=== PATIENT | female | born 1955 | race Caucasian/White ===

== ENCOUNTER 2023-07-29 23:18 | Inpatient (IN) ==
--- NOTE | 2023-07-29 23:50 | Emergency Department Note ---
History of Present Illness General Chief complaint: Hematuria Stated complaint: LT FLANK/ABD PAIN, OVER WEEKEND HEMATURIA Time Seen by Provider: 07/29/23 23:34 History of Present Illness Maximum Pain Intensity: 5 This 68-year-old female presents ER complaining of left-sided abdominal pain and chest pain for the past day. She states she is healthy with no active medical problems. Appendix has been surgically removed. Patient denies fever, chills, cough, congestion, vomiting, diarrhea, flank pain, urinary symptoms. No rash. No trauma to the area. Home Medications Medication Instructions Recorded Confirmed Type diphenhydramine HCl 25 mg capsule 25 mg PO DIRECTED PRN Congestion 07/30/23 07/30/23 History (Benadryl) ibuprofen 200 mg tablet 400 mg PO Q6H PRN Pain 07/30/23 07/30/23 History meloxicam 7.5 mg tablet 7.5 mg PO DAILY PRN Pain 07/30/23 07/30/23 History multivitamin 1 tab PO DAILY 07/30/23 07/30/23 History Allergies Allergy/AdvReac Type Severity Reaction Status Date / Time ciprofloxacin [From Cipro] Allergy Intermediate COUGH/ITCHI Verified 07/30/23 00:54 NG sulfamethoxazole Allergy Intermediate COUGH/ITCHI Verified 07/30/23 00:54 [From Bactrim] NG trimethoprim [From Bactrim] Allergy Intermediate COUGH/ITCHI Verified 07/30/23 00:54 NG Past Med/Surg History Problem List (Updated 07/30/23 @ 01:56 by Diana Kwon PA-C) Ureterolithiasis (Acute) Renal colic on left side (Acute) Social History Smoking Status: Never smoker Feels Safe at Home: Yes Review of Systems A total of 10 systems reviewed and were otherwise negative Physical Exam Vital Signs Vital Signs - 24 hr 07/29/23 23:22 07/30/23 00:14 07/30/23 00:17 Temperature 36.4 C L Temperature Source Temporal Artery Scan Pulse Rate 69 68 Pulse Rate [Apical] 61 Respiratory Rate 18 18 Respiratory Effort / Characteristics Non-Labored Respiratory Depth Normal Respiratory Pattern Regular Blood Pressure 166/87 H Blood Pressure [Right Arm] 129/69 Blood Pressure Mean 113 Blood Pressure Mean [Right Arm] 89 Pulse Oximetry 99 97 Oxygen Delivery Method Room Air Room Air Sepsis Recent Fever Within 48 Hours No Sepsis New/Unexplained Change in Mental Status N/A Sepsis Action Taken by Nursing No Action Required 07/30/23 00:17 Temperature Temperature Source Pulse Rate Pulse Rate [Apical] Respiratory Rate Respiratory Effort / Characteristics Respiratory Depth Respiratory Pattern Blood Pressure Blood Pressure [Right Arm] Blood Pressure Mean Blood Pressure Mean [Right Arm] Pulse Oximetry 97 Oxygen Delivery Method Room Air Sepsis Recent Fever Within 48 Hours Sepsis New/Unexplained Change in Mental Status Sepsis Action Taken by Nursing VITALS: Vitals are noted on the nurse's note and reviewed by myself. Vital signs stable. GENERAL: Pleasant female, in no acute distress, nondiaphoretic, well-developed well-nourished. SKIN: Capillary reflex less than 2 seconds. HEENT: Normocephalic. PERRLA. EOMI. Nares patent. Mucous membranes moist. Neck is supple without nuchal rigidity. HEART: Regular rate and rhythm LUNGS: Clear to auscultation bilaterally without wheezes, rales or rhonchi. No retractions or accessory muscle use. ABDOMEN: Positive bowel sounds x 4. Normal tympanic percussion. Soft, tender left upper and lower quadrant, without masses or organomegaly. Herrera sign negative. No guarding or rebound tenderness. no CVA tenderness MUSCULOSKELETAL: No gross musculoskeletal defects. NEURO: Patient was alert and oriented to person place and time. No focal neurological deficits. Course Administered Medications Discontinued Medications Sodium Chloride (Nss) 500 mls @ 999 mls/hr IV .Q31M STA Stop: 07/30/23 00:10 Last Infusion: 07/30/23 00:34 Dose: Infused Documented By: Admin: 07/30/23 00:02 Dose: 999 mls/hr Documented By: TAVO Acetaminophen (Ofirmev) 1,000 mg in 100 mls @ 400 mls/hr IV NOW STA Stop: 07/29/23 23:54 Last Infusion: 07/30/23 00:34 Dose: Infused Documented By: Admin: 07/30/23 00:02 Dose: 400 mls/hr Documented By: TAVO Ondansetron HCl (Ondansetron Inj 2 Mg/Ml 2 Ml Vial) 4 mg IV NOW STA Stop: 07/29/23 23:41 Last Admin: 07/30/23 00:02 Dose: 4 mg Documented By: TAVO Medical Decision Making Medical Records Attestation: I reviewed the patient's medical records. Home Medications Current Medication List: was personally reviewed by me Laboratory Data Attestation: I reviewed the patient's lab results. 07/30/23 00:01 07/30/23 00:01 Lab Results 07/29/23 07/30/23 Range/Units 23:44 00:01 WBC 8.36 (4.8-10.8) K/ul RBC 4.44 (4.20-5.40) M/uL Hgb 12.5 (12.0-16.0) g/dl Hct 38.5 (37.0-47.0) % MCV 86.7 (80.0-100.0) fL MCH 28.2 (25.0-34.0) pg MCHC 32.5 (32.0-36.0) g/dL RDW Std Deviation 43.3 (36.4-46.3) fL RDW Coeff of Rafy 13.8 (11.5-14.5) % Plt Count 282 (130-400) K/uL MPV 9.5 (9.4-12.4) fL Immature Gran % (Auto) 0.2 % Neut % (Auto) 71.6 % Lymph % (Auto) 18.5 % [place] % (Auto) 7.2 % Eos % (Auto) 2.0 % Baso % (Auto) 0.5 % Neut # (Auto) 5.98 (1.40-6.50) K/uL Lymph # (Auto) 1.55 (1.20-3.40) K/uL [place] # (Auto) 0.60 H (0.11-0.59) K/uL Eos # (Auto) 0.17 (0.00-0.50) K/uL Baso # (Auto) 0.04 (0.00-0.20) K/uL Immature Gran # (Auto) 0.02 (0.01-0.20) K/uL Sodium 140 (136-145) mmol/L Potassium 4.1 (3.5-5.1) mmol/L Chloride 104 (98-107) mmol/L Carbon Dioxide 28 (21-32) mmol/L Anion Gap 8 (3-11) BUN 23 (6-23) mg/dl Creatinine 1.76 H (0.6-1.2) mg/dl Est Cr Clr Drug Dosing 32.5 ml/min Est GFR ( Amer) 34.1 ml/min Est GFR (Non-Af Amer) 29.4 ml/min BUN/Creatinine Ratio 13.1 (10-20) Glucose 110 H (70-99(Fasting)) mg/dl Calcium 9.9 (8.6-10.3) mg/dl Total Bilirubin 0.4 (0.2-1.0) mg/dl AST 16 (13-39) U/L ALT 14 (7-52) U/L Alkaline Phosphatase 106 H (34-104) U/L Troponin I High Sens 4.1 (0-14) pg/ml Total Protein 7.5 (6.0-8.3) gm/dl Albumin 4.6 (3.4-5.0) gm/dl Globulin 2.9 (2.5-4.0) gm/dl Albumin/Globulin Ratio 1.6 (0.9-2) Lipase 58 (11-82) U/L Urine Color Yellow Urine Appearance Cloudy A (Clear) Urine pH 6.0 (4.5-7.5) Ur Specific [place] 1.022 (1.000-1.030) Urine Protein Trace H (Negative) Urine Glucose (UA) Negative (Negative) Urine Ketones Trace H (Negative) Urine Blood 2+ H (Negative) Urine Nitrite Negative (Negative) Urine Bilirubin Negative (Negative) Urine Urobilinogen Negative (Negative) Ur Leukocyte Esterase Negative (Negative) Urine WBC (Auto) 0-5 (0-5) /hpf Urine RBC (Auto) >20 H (0-2) /hpf U Hyaline Cast (Auto) 0-2 (0-2) /lpf U Epithel Cells (Auto) 0-2 (0-2) /hpf Urine Bacteria (Auto) None Seen (None Seen) Calcium Oxalate Crystal Present A (None Prsent) Imaging Data Attestation: I personally reviewed and interpreted this imaging study as follows: Radiologist's Impression: Abdomen/Pelvis CT 07/30/23 00:48 Exam(s): CT ABDOMEN + PELVIS Without Contrast EXAM: CT Abdomen and Pelvis Without Intravenous Contrast CLINICAL HISTORY: Reason for exam: left abd pain. TECHNIQUE: Axial computed tomography images of the abdomen and pelvis without intravenous contrast. CTDI is 22.67 mGy and DLP is 1044.93 mGy-cm. Automated exposure control was utilized for the study. A dose lowering technique was utilized adhering to the principles of ALARA. COMPARISON: None. FINDINGS: Lung bases: Minimal right lower lobe atelectasis, otherwise normal lung parenchyma. Mediastinum: Minimal hiatal hernia. ABDOMEN: Liver: Unremarkable. Gallbladder and bile ducts: Unremarkable. No calcified stones. No ductal dilation. Pancreas: Unremarkable. No ductal dilation. Spleen: Unremarkable. No splenomegaly. Adrenals: Unremarkable. No mass. Kidneys and ureters: Mild left perinephric stranding with moderate hydronephrosis and hydroureter. Stranding surrounding the left ureter. The left ureter is distended to the distal aspect where there is a large stone measuring 7.8 mm. This is seen a few centimeter above the UV junction. Normal right kidney. Stomach and bowel: Unremarkable. No obstruction. No mucosal thickening. PELVIS: Appendix: No findings to suggest acute appendicitis. Bladder: Unremarkable. No stones. Reproductive: Anteverted uterus. ABDOMEN and PELVIS: Intraperitoneal space: Unremarkable. No free air. No significant fluid collection. Bones/joints: Possible mild osteopenia with degenerative disease of the spine. No acute fracture. No dislocation. Soft tissues: Unremarkable. Vasculature: Mild atherosclerotic disease of aorta with no aneurysm. Lymph nodes: Unremarkable. No enlarged lymph nodes. IMPRESSION: 1. Moderate left hydronephrosis due to a distal left ureteral stone measuring 7.8 mm, noted a few centimeter above the UV junction. Remainder of abdominal viscera are unremarkable. 2. No bowel obstruction or acute appendicitis. Electronically signed by: Aditi Talley MD 07/30/23 01:46 AM [facility] Narrative Prior records/ancillary studies reviewed. Triage Nursing notes reviewed. Additional history obtained from family left-sided chest and The patient's history was concerning for left-sided chest and abdominal pain. Differential diagnosis: Etiologies such as cardiac, pulmonary, appendicitis, diverticulitis, PUD, biliary pathology, UTI, pancreatitis, obstruction, mesenteric ischemia, aortic pathology, infections, inflammatory bowel disease, renal colic, as well as others were entertained. Physical examination findings: As above. ER treatment provided: An order was placed for continuous cardiac monitoring. The monitor shows a rate of 60-100 with a sinus rhythm per my Independent interpretation. Tylenol was ordered, morphine, Zofran, Flomax was ordered On reassessment the patient felt better. Diagnostics interpreted by me: ECG: Ordered for upper abdominal pain EKG: Normal sinus, normal intervals, no acute ST-T wave changes. Impression normal sinus rhythm independently interpreted by myself The labs Independently Interpreted by myself revealed creatinine 1.76 No worrisome leukocytosis Imaging studies: Imaging as above HEART SCORE: Hx: high/mod/low suspicion: 0 ECG: ST depression/nonspecific changes/normal: 0 Age: Greater than 65/45-64/less than 45: 2 Risk factors: (Hypertension, hyperlipidemia, diabetes, coronary disease, tobacco use, cocaine use): 0 Troponin: Greater than 2 times normal limits/1-2 times normal limits/normal: 0 Total: 2 Consultation: A consultation was placed with the hospitalist. The case was discussed and diagnostics were reviewed. The patient was evaluated in the ER for further treatment. Exam and history seem consistent with left renal colic. Kidney stone is quite large. Patient was still in a moderate amount of pain. Medicine is consulted case discussed patient admitted to the medical service for further evaluation and workup. By the evaluation outlined above emergent etiologies such as appendicitis, diverticulitis, PUD, biliary pathology, UTI, pancreatitis, obstruction, mesenteric ischemia, aortic pathology, infections, inflammatory bowel disease, as well as others were deemed relatively unlikely. The pt informed about the findings as listed above. All questions were answered and pleased with the treatment. The chart was completed utilizing [employer] Speech voice recognition software. Grammatical errors, random word insertions, pronoun errors, and incomplete sentences are an occassional consequence of this system due to software limitations, ambient noise, and hardware issues. Any formal questions or concerns about the content, text, or information contained within the body of this dictation should be directly addressed to the physician assistant football coach for clarification. Impression & Plan Renal colic on left side, Ureterolithiasis Discharge Plan Visit Data Chief Complaint: Hematuria Stated Complaint: LT FLANK/ABD PAIN, OVER WEEKEND HEMATURIA ED Provider: Nicolette Cervantes ED Midlevel Provider: Diana Kwon Discharge Problem: Renal colic on left side, Ureterolithiasis Patient Disposition: Admitted As Inpatient Condition: Good Forms Stand Alone Forms: [facility] Prescriptions Prescriptions: No Action multivitamin Tablet 1 tab PO DAILY meloxicam 7.5 mg tablet 7.5 mg PO DAILY PRN (Reason: Pain) diphenhydramine HCl [Benadryl] 25 mg Capsule 25 mg PO DIRECTED PRN (Reason: Congestion) ibuprofen 200 mg Tablet 400 mg PO Q6H PRN (Reason: Pain) Referrals Referrals: Sara Reardon PA-C [Primary Care Provider] -
[2023-07-30] MEDS: ACETAMINOPHEN 1,000 MG/100 ML VIAL IV STA (00:02)
[2023-07-30] MEDS: ONDANSETRON INJ 2 MG/ML 2 ML VIAL IV STA ×2 (00:02→02:07)
[2023-07-30] MEDS: SODIUM CHLORIDE 0.9% 500 ML IV STA (00:02)
[2023-07-30 00:31] LABS: Basophils # (auto) 0.04 K/uL (0.00-0.20); Basophils % (auto) 0.5 %; Eosinophils # (auto) 0.17 K/uL (0.00-0.50); Hematocrit (blood only) 38.5 % (37.0-47.0); Hemoglobin 12.5 g/dl (12.0-16.0); Immature Granulocytes # (auto) 0.02 K/uL (0.01-0.20); Immature Granulocytes % (auto) 0.2 %; Lymphocytes # (auto) 1.55 K/uL (1.20-3.40); Lymphocytes % (auto) 18.5 %; Mean Corpuscular Hemoglobin 28.2 pg (25.0-34.0); Mean Corpuscular Hgb Conc 32.5 g/dL (32.0-36.0); Mean Corpuscular Volume 86.7 fL (80.0-100.0); Mean Platelet Volume 9.5 fL (9.4-12.4); Monocytes % (auto) 7.2 %; Neutrophils # (auto) 5.98 K/uL (1.40-6.50); Neutrophils % (auto) 71.6 %; Platelet Count 282 K/uL (130-400); RDW Coefficient of Variation 13.8 % (11.5-14.5); RDW Standard Deviation 43.3 fL (36.4-46.3); Red Blood Count 4.44 M/uL (4.20-5.40); White Blood Count 8.36 K/ul (4.8-10.8)
[2023-07-30 00:38] LABS: Appearance Urine Cloudy (Clear); Bacteria Urine Automated None Seen (None Seen); Bilirubin Urine Negative (Negative); Blood Urine 2+ (Negative); Calcium Oxalate Crystals Urine Present (None Prsent); Cast Urine Automated 0-2 /lpf (0-2); Color Urine Yellow; Epithelial Cell Urine Auto 0-2 /hpf (0-2); Glucose Urine UA Negative (Negative); Ketones Urine Trace (Negative); Leukocyte Esterase Urine Negative (Negative); Nitrite Urine Negative (Negative); Protein Urine Trace (Negative); RBC Urine Automated >20 /hpf (0-2); Specific Gravity Urine 1.022 (1.000-1.030); Urobilinogen Urine Negative (Negative); WBC Urine Automated 0-5 /hpf (0-5)
[2023-07-30 00:40] LABS: Albumin Globulin Ratio 1.6 (0.9-2); Albumin Level 4.6 gm/dl (3.4-5.0); BUN Creatinine Ratio 13.1 (10-20); Bilirubin,Total 0.4 mg/dl (0.2-1.0); Calcium 9.9 mg/dl (8.6-10.3); Creatinine Clr Calc Pharmacy 32.5 ml/min; Est GFR (African American) 34.1 ml/min; Est GFR (Non-African American) 29.4 ml/min; Globulin 2.9 gm/dl (2.5-4.0); Potassium 4.1 mmol/L (3.5-5.1); Total Protein 7.5 gm/dl (6.0-8.3)
[2023-07-30 00:46] LABS: Troponin I High Sensitivity 4.1 pg/ml (0-14)
--- NOTE | 2023-07-30 01:48 | CT Scan Report ---
Exam(s): CT ABDOMEN + PELVIS Without Contrast EXAM: CT Abdomen and Pelvis Without Intravenous Contrast CLINICAL HISTORY: Reason for exam: left abd pain. TECHNIQUE: Axial computed tomography images of the abdomen and pelvis without intravenous contrast. CTDI is 22.67 mGy and DLP is 1044.93 mGy-cm. Automated exposure control was utilized for the study. A dose lowering technique was utilized adhering to the principles of ALARA. COMPARISON: None. FINDINGS: Lung bases: Minimal right lower lobe atelectasis, otherwise normal lung parenchyma. Mediastinum: Minimal hiatal hernia. ABDOMEN: Liver: Unremarkable. Gallbladder and bile ducts: Unremarkable. No calcified stones. No ductal dilation. Pancreas: Unremarkable. No ductal dilation. Spleen: Unremarkable. No splenomegaly. Adrenals: Unremarkable. No mass. Kidneys and ureters: Mild left perinephric stranding with moderate hydronephrosis and hydroureter. Stranding surrounding the left ureter. The left ureter is distended to the distal aspect where there is a large stone measuring 7.8 mm. This is seen a few centimeter above the UV junction. Normal right kidney. Stomach and bowel: Unremarkable. No obstruction. No mucosal thickening. PELVIS: Appendix: No findings to suggest acute appendicitis. Bladder: Unremarkable. No stones. Reproductive: Anteverted uterus. ABDOMEN and PELVIS: Intraperitoneal space: Unremarkable. No free air. No significant fluid collection. Bones/joints: Possible mild osteopenia with degenerative disease of the spine. No acute fracture. No dislocation. Soft tissues: Unremarkable. Vasculature: Mild atherosclerotic disease of aorta with no aneurysm. Lymph nodes: Unremarkable. No enlarged lymph nodes. IMPRESSION: 1. Moderate left hydronephrosis due to a distal left ureteral stone measuring 7.8 mm, noted a few centimeter above the UV junction. Remainder of abdominal viscera are unremarkable. 2. No bowel obstruction or acute appendicitis. Electronically signed by: Aditi Talley MD 07/30/23 01:46 AM
[2023-07-30] MEDS: MoRPHine SULFATE 4 MG/ML 1 ML CARP\\VIAL IV STA (02:07)
[2023-07-30] MEDS: TAMSULOSIN HCL 0.4 MG CAP PO ONE (02:07)
--- NOTE | 2023-07-30 04:00 | History & Physical Report ---
Date of Service July 30, 2023 Assessment & Plan (1) Renal colic on left side: Plan: 68-year-old female with past medical history significant for migraines presents with left sided abdominal pain starting yesterday evening. Pain is located on left side below the rib cage radiating to left groin region. Associated with some nausea. Last Thursday she had few episodes of hematuria but it got resolved. Denies any fevers. Normal bowel movements. No blood in stools or black stools. No chest pain or shortness of breath. No cough. No headache. No dizziness. No blurred visions. No headache. No runny nose or sore throat. Appetite is okay. No swelling in the legs. Currently resting comfortably and hemodynamically stable. With the pain medication pain is improved. Renal colic on left side Had episode of hematuria last Thursday. CT scan showing moderate left hydronephrosis due to distal left ureteral stone measuring 7.8 mm above the UV junction. Pain control, IV fluids, n.p.o., p.o. Flomax urology consult for further recommendations MAGALY creatinine 1.7 avoid nephrotoxic agents follow repeat labs DVT prophylaxis SCDs for now disposition medical floor full code. . History of Present Illness Chief Complaint: left-sided abdominal pain Primary Care Provider: Sara Reardon PA-C 68-year-old female with past medical history significant for migraines presents with left sided abdominal pain starting yesterday evening. Pain is located on left side below the rib cage radiating to left groin region. Associated with some nausea. Last Thursday she had few episodes of hematuria but it got resolved. Denies any fevers. Normal bowel movements. No blood in stools or black stools. No chest pain or shortness of breath. No cough. No headache. No dizziness. No blurred visions. No headache. No runny nose or sore throat. Appetite is okay. No swelling in the legs. Currently resting comfortably and hemodynamically stable. With the pain medication pain is improved. Past medical history. As mentioned above past surgical history. Joint arthroscopy. Right breast lesion excision. Colonoscopy. Laparoscopic appendectomy. Ligation of oviducts. Removal of ovaries. Tonsillectomy and adenoidectomy. Social history. . No smoking. Alcohol occasionally. No drug use. Family history. Maternal aunt had breast cancer. Mother had heart disorder. A-fib. Mitral valve replacement. COPD. Father had hypertension. COPD. Allergies Allergy/AdvReac Type Severity Reaction Status Date / Time ciprofloxacin [From Cipro] Allergy Intermediate COUGH/ITCHI Verified 07/30/23 00:54 NG sulfamethoxazole Allergy Intermediate COUGH/ITCHI Verified 07/30/23 00:54 [From Bactrim] NG trimethoprim [From Bactrim] Allergy Intermediate COUGH/ITCHI Verified 07/30/23 00:54 NG Home Medications Medication Instructions Recorded Confirmed Type diphenhydramine HCl 25 mg capsule 25 mg PO DIRECTED PRN Congestion 07/30/23 07/30/23 History (Benadryl) ibuprofen 200 mg tablet 400 mg PO Q6H PRN Pain 07/30/23 07/30/23 History meloxicam 7.5 mg tablet 7.5 mg PO DAILY PRN Pain 07/30/23 07/30/23 History multivitamin 1 tab PO DAILY 07/30/23 07/30/23 History Past Med/Surg History Problem List (Updated 07/30/23 @ 01:56 by Diana Kwon PA-C) Ureterolithiasis (Acute) Renal colic on left side (Acute) Social History Smoking Status: Never smoker Hx Alcohol Use: Yes Hx Substance Use: No Preferred Language: Barbadian Communication Ability: Effective [employer] Required: No Beliefs That Will Affect Care: None Current Living Situation: Spouse Feels Safe at Home: Yes Safety Concerns: Feels Safe At This Time Assistive Devices: None Review of Systems Review of Systems: All systems reviewed & are unremarkable except as noted in HPI & below Physical Exam Physical Exam: General- Not in distress Head- atraumatic Eyes- PERRL. ENT- oropharynx clear Neck- supple, no JVD. Lungs- clear to auscultation no wheezing or crackles. Heart- regular rhythm; no murmur, no gallop. Abdomen- normal bowel sounds, soft, nontender, no distension. No cva tenderness. Extremities- no pretibial edema, no erythema seen. Neuro- alert, oriented PERRL, no facial palsy; no dysarthria; moves extremities. Results & Data Results & Data Vital Signs (Past 12 Hours) Vital Signs Temp Pulse Pulse Resp BP BP Pulse Ox 07/30/23 02:00 62 18 139/82 96 07/30/23 00:17 97 07/30/23 00:17 61 18 129/69 97 07/30/23 00:14 68 07/29/23 23:22 36.4 C L 69 18 166/87 H 99 O2 Del Method 07/30/23 02:00 Room Air 07/30/23 00:17 Room Air 07/30/23 00:17 Room Air 07/30/23 00:14 07/29/23 23:22 Room Air Diagnostic Findings Laboratory Results WBC 8.36 K/ul (4.8-10.8) 07/30/23 00:01 RBC 4.44 M/uL (4.20-5.40) 07/30/23 00:01 Hgb 12.5 g/dl (12.0-16.0) 07/30/23 00:01 Hct 38.5 % (37.0-47.0) 07/30/23 00:01 MCV 86.7 fL (80.0-100.0) 07/30/23 00:01 MCH 28.2 pg (25.0-34.0) 07/30/23 00:01 MCHC 32.5 g/dL (32.0-36.0) 07/30/23 00:01 RDW Std Deviation 43.3 fL (36.4-46.3) 07/30/23 00:01 RDW Coeff of Rafy 13.8 % (11.5-14.5) 07/30/23 00:01 Plt Count 282 K/uL (130-400) 07/30/23 00:01 MPV 9.5 fL (9.4-12.4) 07/30/23 00:01 Immature Gran % (Auto) 0.2 % 07/30/23 00:01 Neut % (Auto) 71.6 % 07/30/23 00:01 Lymph % (Auto) 18.5 % 07/30/23 00:01 [place] % (Auto) 7.2 % 07/30/23 00:01 Eos % (Auto) 2.0 % 07/30/23 00:01 Baso % (Auto) 0.5 % 07/30/23 00:01 Neut # (Auto) 5.98 K/uL (1.40-6.50) 07/30/23 00:01 Lymph # (Auto) 1.55 K/uL (1.20-3.40) 07/30/23 00:01 [place] # (Auto) 0.60 K/uL (0.11-0.59) H 07/30/23 00:01 Eos # (Auto) 0.17 K/uL (0.00-0.50) 07/30/23 00:01 Baso # (Auto) 0.04 K/uL (0.00-0.20) 07/30/23 00:01 Immature Gran # (Auto) 0.02 K/uL (0.01-0.20) 07/30/23 00:01 Sodium 140 mmol/L (136-145) 07/30/23 00:01 Potassium 4.1 mmol/L (3.5-5.1) 07/30/23 00:01 Chloride 104 mmol/L (98-107) 07/30/23 00:01 Carbon Dioxide 28 mmol/L (21-32) 07/30/23 00:01 Anion Gap 8 (3-11) 07/30/23 00:01 BUN 23 mg/dl (6-23) 07/30/23 00:01 Creatinine 1.76 mg/dl (0.6-1.2) H 07/30/23 00:01 Est Cr Clr Drug Dosing 32.5 ml/min 07/30/23 00:01 Est GFR ( Amer) 34.1 ml/min 07/30/23 00:01 Est GFR (Non-Af Amer) 29.4 ml/min 07/30/23 00:01 BUN/Creatinine Ratio 13.1 (10-20) 07/30/23 00:01 Glucose 110 mg/dl (70-99(Fasting)) H 07/30/23 00:01 Calcium 9.9 mg/dl (8.6-10.3) 07/30/23 00:01 Total Bilirubin 0.4 mg/dl (0.2-1.0) 07/30/23 00:01 AST 16 U/L (13-39) 07/30/23 00:01 ALT 14 U/L (7-52) 07/30/23 00:01 Alkaline Phosphatase 106 U/L (34-104) H 07/30/23 00:01 Troponin I High Sens 4.1 pg/ml (0-14) 07/30/23 00:01 Total Protein 7.5 gm/dl (6.0-8.3) 07/30/23 00:01 Albumin 4.6 gm/dl (3.4-5.0) 07/30/23 00:01 Globulin 2.9 gm/dl (2.5-4.0) 07/30/23 00:01 Albumin/Globulin Ratio 1.6 (0.9-2) 07/30/23 00:01 Lipase 58 U/L (11-82) 07/30/23 00:01 Urine Color Yellow 07/29/23 23:44 Urine Appearance Cloudy (Clear) A 07/29/23 23:44 Urine pH 6.0 (4.5-7.5) 07/29/23 23:44 Ur Specific [place] 1.022 (1.000-1.030) 07/29/23 23:44 Urine Protein Trace (Negative) H 07/29/23 23:44 Urine Glucose (UA) Negative (Negative) 07/29/23 23:44 Urine Ketones Trace (Negative) H 07/29/23 23:44 Urine Blood 2+ (Negative) H 07/29/23 23:44 Urine Nitrite Negative (Negative) 07/29/23 23:44 Urine Bilirubin Negative (Negative) 07/29/23 23:44 Urine Urobilinogen Negative (Negative) 07/29/23 23:44 Ur Leukocyte Esterase Negative (Negative) 07/29/23 23:44 Urine WBC (Auto) 0-5 /hpf (0-5) 07/29/23 23:44 Urine RBC (Auto) >20 /hpf (0-2) H 07/29/23 23:44 U Hyaline Cast (Auto) 0-2 /lpf (0-2) 07/29/23 23:44 U Epithel Cells (Auto) 0-2 /hpf (0-2) 07/29/23 23:44 Urine Bacteria (Auto) None Seen (None Seen) 07/29/23 23:44 Calcium Oxalate Crystal Present (None Prsent) A 07/29/23 23:44 Impressions Abdomen/Pelvis CT 07/30/23 00:48 Exam(s): CT ABDOMEN + PELVIS Without Contrast EXAM: CT Abdomen and Pelvis Without Intravenous Contrast CLINICAL HISTORY: Reason for exam: left abd pain. TECHNIQUE: Axial computed tomography images of the abdomen and pelvis without intravenous contrast. CTDI is 22.67 mGy and DLP is 1044.93 mGy-cm. Automated exposure control was utilized for the study. A dose lowering technique was utilized adhering to the principles of ALARA. COMPARISON: None. FINDINGS: Lung bases: Minimal right lower lobe atelectasis, otherwise normal lung parenchyma. Mediastinum: Minimal hiatal hernia. ABDOMEN: Liver: Unremarkable. Gallbladder and bile ducts: Unremarkable. No calcified stones. No ductal dilation. Pancreas: Unremarkable. No ductal dilation. Spleen: Unremarkable. No splenomegaly. Adrenals: Unremarkable. No mass. Kidneys and ureters: Mild left perinephric stranding with moderate hydronephrosis and hydroureter. Stranding surrounding the left ureter. The left ureter is distended to the distal aspect where there is a large stone measuring 7.8 mm. This is seen a few centimeter above the UV junction. Normal right kidney. Stomach and bowel: Unremarkable. No obstruction. No mucosal thickening. PELVIS: Appendix: No findings to suggest acute appendicitis. Bladder: Unremarkable. No stones. Reproductive: Anteverted uterus. ABDOMEN and PELVIS: Intraperitoneal space: Unremarkable. No free air. No significant fluid collection. Bones/joints: Possible mild osteopenia with degenerative disease of the spine. No acute fracture. No dislocation. Soft tissues: Unremarkable. Vasculature: Mild atherosclerotic disease of aorta with no aneurysm. Lymph nodes: Unremarkable. No enlarged lymph nodes. IMPRESSION: 1. Moderate left hydronephrosis due to a distal left ureteral stone measuring 7.8 mm, noted a few centimeter above the UV junction. Remainder of abdominal viscera are unremarkable. 2. No bowel obstruction or acute appendicitis. Electronically signed by: Aditi Talley MD 07/30/23 01:46 AM ECG Additional Comments: ECG. Normal sinus rhythm at a rate of 66. No acute ST changes seen. Code Status & VTE Plan VTE Prophylaxis Plan VTE Prophylaxis will be ordered: Yes
[2023-07-30] MEDS ORDERED: POLYETHYLENE (MIRALAX) 17 GM PACK PO PRN (04:27)
[2023-07-30] MEDS ORDERED: ONDANSETRON INJ 2 MG/ML 2 ML VIAL IV PRN (04:27)
[2023-07-30] MEDS: SODIUM CHLORIDE 0.9% 1,000 ML IV SCH (04:48)
[2023-07-30] MEDS: HYDROmorphone INJ 0.5 MG/0.5 ML SYR IV PRN ×2 (05:51→10:30)
--- NOTE | 2023-07-30 07:06 | XRay Report ---
XR chest 1V portable CLINICAL HISTORY: left CP TECHNIQUE: Single frontal radiograph of the chest was obtained. Comparison: None available at the time of this dictation. FINDINGS: No lines and tubes are seen. The cardiomediastinal silhouette is normal. The lungs are clear. No evid ence of pleural effusion or pneumothorax. IMPRESSION: No acute chest disease. ACT 112: Negative or not required by law. Electronically signed by: Rell Chapman M.D. 07/30/2023 7:05 AM
[2023-07-30 07:15] LABS: Basophils # (auto) 0.04 K/uL (0.00-0.20); Basophils % (auto) 0.6 %; Eosinophils # (auto) 0.13 K/uL (0.00-0.50); Eosinophils % (auto) 2.1 %; Hemoglobin 10.8 g/dl (12.0-16.0); Immature Granulocytes # (auto) 0.01 K/uL (0.01-0.20); Immature Granulocytes % (auto) 0.2 %; Lymphocytes # (auto) 1.91 K/uL (1.20-3.40); Lymphocytes % (auto) 30.1 %; Mean Corpuscular Hemoglobin 27.9 pg (25.0-34.0); Mean Corpuscular Hgb Conc 32.7 g/dL (32.0-36.0); Mean Corpuscular Volume 85.3 fL (80.0-100.0); Mean Platelet Volume 9.2 fL (9.4-12.4); Monocytes # (auto) 0.57 K/uL (0.11-0.59); Neutrophils # (auto) 3.68 K/uL (1.40-6.50); Platelet Count 239 K/uL (130-400); RDW Coefficient of Variation 13.7 % (11.5-14.5); RDW Standard Deviation 42.5 fL (36.4-46.3); Red Blood Count 3.87 M/uL (4.20-5.40); White Blood Count 6.34 K/ul (4.8-10.8)
[2023-07-30 07:28] LABS: BUN Creatinine Ratio 13.6 (10-20); Calcium 8.7 mg/dl (8.6-10.3); Creatinine Clr Calc Pharmacy 38.9 ml/min; Est GFR (African American) 42.4 ml/min; Est GFR (Non-African American) 36.6 ml/min; Magnesium 1.9 mg/dl (1.7-2.4); Potassium 4.3 mmol/L (3.5-5.1)
--- NOTE | 2023-07-30 07:47 | Urology Consultation ---
Date of Consultation July 30, 2023 Assessment & Plan (1) Ureterolithiasis: (2) Renal colic on left side: Plan Findings: Hemodynamically stable, afebrile, UA is not suspicious for an infection and there is no leukocytosis No cultures currently pending Patient's pain is well-controlled by medications Kidney function has improved -creatinine lower than upon arrival Patient to be admitted under medicine service Urology recommends: Discussed options for stone management with patient At this time she prefers medical expulsion therapy currently/outpatient stone management with only one surgery Medical expulsion therapy recommended in the mean time with Flomax, PRN pain medication, zofran Reasonable given patient is having well controlled pain management, kidney function improving and no leukocytosis If any change in patients condition can reconsider inpatient stent placement Patient will need close outpatient f/u next week to schedule stone removal surgery Patient aware to monitor closely for s/s of an infection Discussed outpatient stone prevention measures and/or referral to nephrology at a later date Urology will follow History of Present Illness Attending Physician: Shola Sommer MD History of Present Illness 68-year-old female who presented to the ER on 07/29/2023 with complaints of left abdominal and flank pain. CT was completed which showed a large distal ureter stone with associated perinephric and ureter stranding. Patient's UA showed trace of protein, trace ketones, 2+ blood, greater than 20 RBCs, positive for calcium oxalate crystals, negative for nitrates, leukocyte Estrace, negative WBCs, negative bacteria. Negative leukocytosis. CT a/p w/o IV contrast Mild left perinephric stranding with moderate hydro nephrosis and hydroureter. Stranding surrounding the left ureter. The left ureter is distended to the distal aspect where there is a large stone measuring 7.8 mm. This is seen a few centimeter above the UV junction. Normal right kidney. Labs review: 07/30/23 Cr 1.47 ( down from 1.76 on arrival) WBC 6.34 Hbg 10.8 Glucose 100 Patient very pleasant and resting comfortably in bed. She has no history of nephrolithiasis. She has never seen a urologist in the past. She had painless gross hematuria on Thursday which resolved on Thursday. She developed 9/10 left flank/abdominal pain last night after supper with associated vomiting which brought her to the ER. She denies fevers, chills, urinary frequency, urgency, or dysuria or any changes to her baseline urinary symptoms. She is now at a 1/10 on a pain level. She is interested in understanding what caused her to have a stone and prevention of them. Allergies Allergy/AdvReac Type Severity Reaction Status Date / Time ciprofloxacin [From Cipro] Allergy Intermediate COUGH/ITCHI Verified 07/30/23 00:54 NG sulfamethoxazole Allergy Intermediate COUGH/ITCHI Verified 07/30/23 00:54 [From Bactrim] NG trimethoprim [From Bactrim] Allergy Intermediate COUGH/ITCHI Verified 07/30/23 00:54 NG Home Medications Medication Instructions Recorded Confirmed Type diphenhydramine HCl 25 mg capsule 25 mg PO DIRECTED PRN Congestion 07/30/23 07/30/23 History (Benadryl) ibuprofen 200 mg tablet 400 mg PO Q6H PRN Pain 07/30/23 07/30/23 History meloxicam 7.5 mg tablet 7.5 mg PO DAILY PRN Pain 07/30/23 07/30/23 History multivitamin 1 tab PO DAILY 07/30/23 07/30/23 History Patient History Social History Smoking Status: Never smoker Hx Alcohol Use: Yes Hx Substance Use: No Preferred Language: Faroese Communication Ability: Effective Baling Machine Tender Required: No Beliefs That Will Affect Care: None Current Living Situation: Spouse Feels Safe at Home: Yes Safety Concerns: Feels Safe At This Time Assistive Devices: None Review of Systems Review of Systems: 14 point review of systems negative exce pt for otherwise indicated. Physical Exam Constitutional: well developed and well nourished; no acute distress Eyes: + anicteric sclerae; pupils not irregula r Respiratory: normal respiratory effort; no respiratory distress, does not use accessory muscles and normal respiratory pattern Cardiovascular: well perfused Gastrointestinal (Abdomen): Inspection/Auscultation: abdomen normal to inspection Musculoskeletal: Extremities: extremities normal to inspection Skin: no rashes, warm and dry normal turgor Neurologic: moves all extremities and awake Speech / Cognition: normal speech Psychiatric: Orientation: alert and oriented x 3 Eye Contact: good eye contact Results & Data Vital Signs (Past 12 Hours) Vital Signs Temp Pulse Pulse Resp BP BP Pulse Ox 05/23/24 07:30 59 L 07/30/23 06:30 62 18 132/67 98 07/30/23 04:36 60 18 127/66 94 07/30/23 03:56 57 L 07/30/23 02:00 62 18 139/82 96 07/30/23 00:17 97 07/30/23 00:17 61 18 129/69 97 07/30/23 00:14 68 07/29/23 23:22 36.4 C L 69 18 166/87 H 99 O2 Del Method O2 Flow Rate 07/30/23 07:30 07/30/23 06:30 Oxymask 2 07/30/23 04:36 Room Air 07/30/23 03:56 07/30/23 02:00 Room Air 07/30/23 00:17 Room Air 07/30/23 00:17 Room Air 07/30/23 00:14 07/29/23 23:22 Room Air PG Care Time/CCT Total # of Minutes Spent Total Time Spent with Patient: Total time spent is greater than 50% in coordination of care (as documented) at patient's floor/unit and/or counseling patient: Coding Level of Care Code 30158 INT INP/OBS CARE 2/55MIN Diagnoses Ureterolithiasis N20.1 Renal colic on left side N23
--- NOTE | 2023-07-30 15:24 | Electrocardiogram Report ---
Test Reason : Blood Pressure : / mmHG Vent. Rate : 066 BPM Atrial Rate : 066 BPM P-R Int : 172 ms QRS Dur : 074 ms QT Int : 382 ms P-R-T Axes : 038 015 030 degrees QTc Int : 400 ms Normal sinus rhythm Normal ECG No previous ECGs available Confirmed by Carlos Carlson ([id number]) on 07/30/2023 3:24:27 PM Referred By: REFERRED SELF Confirmed By:Carlos Carlson
[2023-07-30] MEDS: TAMSULOSIN HCL 0.4 MG CAP PO SCH (20:34)
[2023-07-30] MEDS: ACETAMINOPHEN 325 MG TAB PO PRN (20:54)
--- OUTSIDE RECORDS SUMMARY | 2023-07-31 02:45 | External Medical Summary | Summary of Care ---
Author Name Unknown Organization [facility] Address [address] [place] [address] Phone [phone] Care Team Providers Care Rn Ante Partum Name Role Phone Sara Reardon PA-C Primary Care Provider Encounter Details Date Type Department Care Team (Latest Contact Info) Description 04/02/2023 9:56 AM EST - 04/02/2023 11:59 PM EST Hospital Encounter Radiology, [address] [phone] Arrived Discharge Disposition: Home - Self Care Allergies Active Allergy Reactions Criticality Noted Date Comments Ciprofloxacin Hcl Hives 03/26/2017 Patient had been taking Cipro WITH Flagyl and developed a rash Metronidazole Hives 03/26/2017 Patient developed a rash coupled with Cipro documented as of this encounter (statuses as of 04/03/2023) Medications Medication Sig Dispensed Refills Start Date End Date Status Multiple Vitamin (MULTI VITAMIN DAILY) TABSIndications:daily Indications: daily 0 Active diphenhydrAMINE (BENADRYL) 25 MG Capsule Take 25 mg by mouth every 6 hours as needed for Rhinitis. 0 Active Alavert Allergy/Sinus 5-120 MG Tablet Extended Release 12 Hour (loratadine-pseudoephe drine ER 5-120 mg per tab) Take 1 Tablet by mouth in the morning. 0 Active Albuterol Sulfate HFA 108 (90 Base) MCG/ACT Inhalation Aerosol SolutionIndications:As thma due to seasonal allergies Inhale 2 Puffs by mouth every 6 hours as needed (cough, wheezing, sob). 18 g 1 12/16/2022 Active documented as of this encounter (statuses as of 04/03/2023) Active Problems Problem Noted Date Diagnosed Date Migraine without aura, witho ut mention of intractable migraine without mention of status migrainosus 08/03/2014 documented as of this encounter (statuses as of 04/03/2023) Resolved Problems Problem Noted Date Diagnosed Date Resolved Date Acute appendicitis with localized peritonitis 03/17/19 18 02/09/2018 documented as of this encounter (statuses as of 04/03/2023) Immunizations Name Administration Dates Next Due COVID-19 mRNA, LNP-s, No Pre serve, 2-Dose Series (Pfizer) 01/19/2021,06/29/2020,06/08/2020 Pneumococcal Conjugate Vacci ne, 20-valent ([id number]) 10/24/2021 Seasonal Influenza, Quadriva lent Hd (Fluzone Hd) 12/16/2022 Zoster Vaccine Recombinant (Shingrix) 12/24/2020 ,08/22/2020 documented as of this encounter Social History Tobacco Use Types Packs/Day Years Used Date Smoking Tobacco: Never Smokeless Tobacco: Never Alcohol Use Standard Drinks/Week Comments Yes 0 (1 standard drink = 0.6 oz pur e alcohol) occasionally PHQ-2 Answer Date Recorded PHQ Adult Total Score 0 12/16/2022 Hunger Vital Sign Answer Date Recorded Within the past 12 months, y ou worried that your food would run out before you got the money to buy more. Never true 12/17/19 23 Within the past 12 months, t he food you bought just didn't last and you didn't have money to get more. Never true 12/16/2022 Sex and Gender Information Value Date Recorded Sex Assigned at Female 10/24/2021 8:04 AM EDT Gender Identity Female 10/24/2021 8:04 AM EDT Sexual Orientation Straight 10/24/2021 8: 04 AM EDT Job Start Date Occupation Industry Not on file Not on file Not on file documented as of this encounter Plan of Treatment Upcoming Encounters Date Type Department Care Team (Late st Contact Info) Description 12/22/2023 9:20 AM EDT Office Visit [address] [place] [id number] Sara Reardon PA-C [address] [place] [address] Scheduled Procedures Name Priority Associated Diagnoses Date/Ti me COLONOSCOPY FLEXIBLE PROXIMA L DIAGNOSTIC Recall History of colonic polyps Family history of colonic polyps Health Maintenance Due Date Last Done Comments DTaP,Tdap,and Td Vaccines (1 - Tdap) 01[birth year]01/1974 COVID-19 Vaccine (4 - 2022- season) 2022 01/19/2021, 06/29/2020, 06/08/2020 Depression Screening 12/17/2023 12/16/2022 Mammogram 04/02/2024 04/02/2023, 11/07, 10/05/2020, Additional history exists Diabetes Screening 10/24/2024 10/24/2021, 0 03/16/2017, 09/20/2014 DXA Scan 12/26/2024 12/26/2022 COLONOSCOPY-EVERY 5 YRS AGES 18-100 11/22/2025 11/22/2020, 11/22/2020, 03/12/2015, Additional history exists Lipid Panel 10/24/2026 10/24/2021, 09/07, 10/03/2020, Additional history exists Pap Smear Discontinued 08/22/2020, 12/0 06/2017, 10/30/2014, Additional history exists Zoster Vaccines Completed 12/24/2020, 08/22/2020 Pneumococcal Vaccine: 65+ Years Completed 10/24/2021 Influenza Vaccine (FLU shot) Completed 12/16/2022 GARDASIL-HPV IMMUNIZATION SERIES Aged Out No longer eligible based on patient's age to complete this topic Hepatitis B Aged Out No longer eligi ble based on patient's age to complete this topic MENINGOCOCCAL (MENACTRA/MENVEO) Aged Out No longer eligible based on patient's age to complete this topic documented as of this encounter Medical Devices Not on filedocumented as of this encounter Procedures Procedure Name Priority Date/Time Associated Diagnosis Comments MAMMOGRAM SCREENING MUKESH BILATERAL Routine 04/02/2023 10:09 AM EST Encounter for screening mammogram for breast cancer documented in this encounter Results * MAMMOGRAM SCREENING MUKESH BILATERAL (04/02/2023 10:09 AM EST) Anatomical Region Laterality Modality Breast Bilateral Mammography Narrative 04/02/2023 11:27 AM EST Result MAMMOGRAM SCREENING MUKESH BILATERAL History Encounter for screening mammogram for breast cancer Family medical history includes breast cancer in aunt (maternal) (age of onset: 58). Films Compared 11/18/2021 MAMMOGRAM SCREENING MUKESH BILATERAL, 10/05/2020 MAMMOGRAM SCREENING BILATERAL, 03/23/2018 MAMMOGRAM DIAGNOSTIC MUKESH RIGHT, and 02/09/2018 MAMMOGRAM SCREENING BILATERAL Findings The breasts have scattered areas of fibroglandular density. There is no evidence of suspicious masses, calcifications, or other abnormal findings. Impression Bilateral No mammographic evidence of malignancy. BI-RADS Category: 1 - Negative. Recommendation Screening mammogram in 1 year is recommended for both breasts. Digital breast tomosynthesis was performed. This digital mammogram has been analyzed with the computer aided detection system. This notice contains the results of your recent mammogram, including information about breast density. If your mammogram shows that your breast tissue is dense, you should know that dense breast tissue is a common finding and is not abnormal. Statistics show many women could have dense or highly dense breasts. Dense breast tissue can make it harder to find cancer on a mammogram and may be associated with an increased risk of cancer. This information about the result of your mammogram is given to you to raise your awareness and to inform your conversations with your physician. Together, you can decide which screening options are right for you, based on your mammogram results, individual risk factors or physical examination. A report of your results was sent to your physician. Your mammographic breast density on today's study is described above. There are four categories of breast density on mammography. Fatty breasts and those with scattered fibroglandular tissue are not considered dense. Heterogeneously dense or extremely dense tissue is considered "dense". Please understand that assessment of breast density may vary from year to year. This examination was performed at [facility], [address] [place] [phone]. Sara Reardon PA-C RAD MAMMOGRAPH Y documented in this encounter Visit Diagnoses Diagnosis Encounter for screening mammogram for breast cancer documented in this encounter Advance Directives Latest Code Status on File Code Status Date Activated Date Inactivated Comments Full Code 03/16/2017 6:29 PM 03/17/2017 6:05 PM This or marisol reflects the patients wishes and were consensually agreed upon. Question Answer Comments Discussion of Advance Directives occurred with: Patient Does the patient have a Living Will? No Does the patient have Health Care Power of Transportation Program Director? No Care Teams Rn Ante Partum Relationship Specialty Start Date End Date Sara Reardon PA-C [address] [place] [address] PCP - General Physician Audio Visual Aids Director 10/04/20 documented as of this encounter
[2023-07-31 08:16] LABS: Hematocrit (blood only) 34.2 % (37.0-47.0); Hemoglobin 10.9 g/dl (12.0-16.0); Mean Corpuscular Hemoglobin 27.9 pg (25.0-34.0); Mean Corpuscular Hgb Conc 31.9 g/dL (32.0-36.0); Mean Corpuscular Volume 87.5 fL (80.0-100.0); Mean Platelet Volume 9.4 fL (9.4-12.4); Platelet Count 242 K/uL (130-400); RDW Coefficient of Variation 13.7 % (11.5-14.5); RDW Standard Deviation 43.6 fL (36.4-46.3); Red Blood Count 3.91 M/uL (4.20-5.40); White Blood Count 5.33 K/ul (4.8-10.8)
--- NOTE | 2023-07-31 08:31 | Urology Progress Note ---
Date of Service July 31, 2023 Assessment & Plan (1) Ureterolithiasis: (2) Renal colic on left side: Plan: Follow-up of left distal ureteral stone Remains afebrile and hemodynamically stable Labs reviewedcreatinine has normalized (0.76 today), no leukocytosis UA on arrival was not suspicious for infection Denies pain, did not utilize any pain medication overnight Reviewed and discussed options for stone management including trial of passage versus left ureteral stent today or follow-up outpatient to discuss stone surgery After discussion, she wishes to follow-up outpatient for stone surgery which is reasonable given she has been stable and without pain Recommend discharge to home when medically stable Recommend hydration, tamsulosin and prn analgesia Continue to strain urine She is scheduled for follow-up with urology next week to discuss definitive stone treatment will sign off, please contact our service with any additional questions or concerns Admission and Anticipated Discharge Date Admission Date: July 30, 2023 Subjective Patient seen and examined at bedside this morning She is awake and resting in bed, at bedside No acute issues overnight She denies pain Voiding without difficulty Denies fever, chills, nausea or vomiting Review of Systems Constitutional: as per Subjective / HPI Gastrointestinal: as per Subjective / HPI Genitourinary: as per Subjective / HPI Physical Exam Constitutional: well developed and well nourished; no acute distress Respiratory: normal respiratory effort; no respiratory distress and no labored breathing Gastrointestinal (Abdomen): Inspection/Auscultation: abdomen normal to inspection Musculoskeletal: Head/Neck/Chest: normocephalic Neurologic: moves all extremities and awake Psychiatric: Orientation: alert and oriented x 3 Results & Data Vital Signs (Past 12 Hours) Vital Signs Temp Pulse Resp BP Pulse Ox O2 Del Method 07/31/23 07:24 36.7 C 64 16 121/71 96 Room Air 07/30/23 22:00 Room Air 07/30/23 20:38 36.7 C 69 16 145/79 H 97 Room Air PG Care Time/CCT Total # of Minutes Spent Total Time Spent with Patient: Total time spent is greater than 50% in coordination of care (as documented) at patient's floor/unit and/or counseling patient: Coding Level of Care Code 91717 SUB INP/OBS CARE 25MIN Diagnoses Ureterolithiasis N20.1 Renal colic on left side N23
[2023-07-31 08:41] LABS: BUN Creatinine Ratio 14.5 (10-20); Calcium 8.6 mg/dl (8.6-10.3); Creatinine Clr Calc Pharmacy 75.2 ml/min; Est GFR (African American) 94.1 ml/min; Est GFR (Non-African American) 81.2 ml/min; Magnesium 1.9 mg/dl (1.7-2.4); Phosphorus 2.9 mg/dl (2.5-4.9); Potassium 4.1 mmol/L (3.5-5.1)
--- NOTE | 2023-07-31 09:01 | Discharge Summary ---
Date of Service July 31, 2023 Admission HPI Per Admitting Provider 68-year-old female with past medical history significant for migraines presents with left sided abdominal pain starting yesterday evening. Pain is located on left side below the rib cage radiating to left groin region. Associated with some nausea. Last Thursday she had few episodes of hematuria but it got resolved. Denies any fevers. Normal bowel movements. No blood in stools or black stools. No chest pain or shortness of breath. No cough. No headache. No dizziness. No blurred visions. No headache. No runny nose or sore throat. Appetite is okay. No swelling in the legs. Currently resting comfortably and hemodynamically stable. With the pain medication pain is improved. Past medical history. As mentioned above past surgical history. Joint arthroscopy. Right breast lesion excision. Colonoscopy. Laparoscopic appendectomy. Ligation of oviducts. Removal of ovaries. Tonsillectomy and adenoidectomy. Social history. . No smoking. Alcohol occasionally. No drug use. Family history. Maternal aunt had breast cancer. Mother had heart disorder. A-fib. Mitral valve replacement. COPD. Father had hypertension. COPD. Admission Exam Per Admitting Provider General- Not in distress Head- atraumatic Eyes- PERRL. ENT- oropharynx clear Neck- supple, no JVD. Lungs- clear to auscultation no wheezing or crackles. Heart- regular rhythm; no murmur, no gallop. Abdomen- normal bowel sounds, soft, nontender, no distension. No cva tenderness. Extremities- no pretibial edema, no erythema seen. Neuro- alert, oriented PERRL, no facial palsy; no dysarthria; moves extremities. Principal Diagnosis MAGALY Left renal colic Left ureterolithiasis Discharge Exam General- WD/WN F in NAD Head- atraumatic Eyes- PERRL. Neck- supple, no JVD. Lungs- clear to auscultation no wheezing or crackles. Heart- regular rhythm; no murmur, no gallop. Abdomen- normal bowel sounds, soft, nontender, no distension. No cva tenderness. Extremities- no pretibial edema, no erythema seen. Neuro- alert, oriented PERRL, no facial palsy; no dysarthria; moves extremities. Discharge Data Allergies Allergy/AdvReac Type Severity Reaction Status Date / Time ciprofloxacin [From Cipro] Allergy Intermediate COUGH/ITCHI Verified 07/30/23 00:54 NG sulfamethoxazole Allergy Intermediate COUGH/ITCHI Verified 07/30/23 00:54 [From Bactrim] NG trimethoprim [From Bactrim] Allergy Intermediate COUGH/ITCHI Verified 07/30/23 00:54 NG Consultations 07/30/23 01:49 ED Decision to Admit Stat 07/30/23 08:00 Consult Urology Routine Ordered Studies 07/30/23 00:48 CT abd pelvis wo con Stat FINDINGS: Lung bases: Minimal right lower lobe atelectasis, otherwise normal lung parenchyma. Mediastinum: Minimal hiatal hernia. ABDOMEN: Liver: Unremarkable. Gallbladder and bile ducts: Unremarkable. No calcified stones. No ductal dilation. Pancreas: Unremarkable. No ductal dilation. Spleen: Unremarkable. No splenomegaly. Adrenals: Unremarkable. No mass. Kidneys and ureters: Mild left perinephric stranding with moderate hydronephrosis and hydroureter. Stranding surrounding the left ureter. The left ureter is distended to the distal aspect where there is a large stone measuring 7.8 mm. This is seen a few centimeter above the UV junction. Normal right kidney. Stomach and bowel: Unremarkable. No obstruction. No mucosal thickening. PELVIS: Appendix: No findings to suggest acute appendicitis. Bladder: Unremarkable. No stones. Reproductive: Anteverted uterus. ABDOMEN and PELVIS: Intraperitoneal space: Unremarkable. No free air. No significant fluid collection. Bones/joints: Possible mild osteopenia with degenerative disease of the spine. No acute fracture. No dislocation. Soft tissues: Unremarkable. Vasculature: Mild atherosclerotic disease of aorta with no aneurysm. Lymph nodes: Unremarkable. No enlarged lymph nodes. IMPRESSION: 1. Moderate left hydronephrosis due to a distal left ureteral stone measuring 7.8 mm, noted a few centimeter above the UV junction. Remainder of abdominal viscera are unremarkable. 2. No bowel obstruction or acute appendicitis. Hospital Course (1) Renal colic on left side: 68 yo F with past medical history significant for migraines presents with left sided abdominal pain starting yesterday evening. Pain is located on left side below the rib cage radiating to left groin region. Associated with some nausea. Last Thursday she had few episodes of hematuria but it got resolved. Denies any fevers. Normal bowel movements. No blood in stools or black stools. No chest pain or shortness of breath. No cough. No headache. No dizziness. No blurred visions. No headache. No runny nose or sore throat. Appetite is okay. No swelling in the legs. Currently resting comfortably and hemodynamically stable. With the pain medication pain is improved. Renal colic on left side Left ureterolithiasis Had episode of hematuria last Thursday. CT scan showing moderate left hydronephrosis due to distal left ureteral stone measuring 7.8 mm above the UV junction. Pain control, IV fluids, Flomax Urology consulted for further recommendations - Reviewed and discussed options for stone management including trial of passage versus left ureteral stent today or follow-up outpatient to discuss stone surgery After discussion, she wishes to follow-up outpatient for stone surgery which is reasonable given she has been stable and without pain Recommend discharge to home Recommend hydration, tamsulosin and prn analgesia Continue to strain urine She is scheduled for follow-up with urology next week to discuss definitive stone treatment MAGALY - resolved w/ IV fluids creatinine 1.7 -> 0.76 avoid nephrotoxic agents, avoid NSAIDs follow repeat labs UA not c/w infection but ucultx pending Total Time Total Time Spent Total Time Spent (In Minutes): 40 Discharge Plan Discharge Items Patient Disposition: Home - Self-Care Reason For Visit: LEFT RENAL COLIC, MAGALY Discharge Diagnosis: MAGALY Left renal colic Left ureterolithiasis Condition on Discharge: Good Activity: Per Instructions section Non-emergency contact: Primary Care Provider and Urologist Call non-emergency contact if: you have any medication questions and your symptoms worsen Follow-up/Referrals: Kami Domingo CRNP [Nurse Practitioner] - 08/07/23 12:00 pm Ivy Magana CRNP [Nurse Practitioner] - (The Urology office will contact you for a follow up appointment.) Sara Reardon PA-C [Primary Care Provider] - (Date & Time 08/06/2023 1:40 PM Provider Sara Reardon PA-C [facility] ) Diet: Regular Addtl Attending Provider Instructions: Follow up with your primary care doctor and urologist. Take Flomax (tamsulosin) daily, as prescribed. Make sure to stay well hydrated. For pain, you can take Tylenol 1,000 mg three times a day. For more severe pain, you can take oxycodone as needed as prescribed. Pending Studies at Discharge: Yes Studies:: urine cultx results Stand-Alone Forms: My [facility], Smoking Cessation Medications and DC Order Prescriptions: New tamsulosin 0.4 mg Capsule 0.4 mg PO HS Qty: 30 0RF oxycodone 5 mg tablet 5 mg PO TID PRN (Reason: pain) Qty: 5 0RF Continued multivitamin Tablet 1 tab PO DAILY diphenhydramine HCl [Benadryl] 25 mg Capsule 25 mg PO DIRECTED PRN (Reason: Congestion) Held meloxicam 7.5 mg tablet 7.5 mg PO DAILY PRN (Reason: Pain) Hold Instructions: Resume on 08/03/23. ibuprofen 200 mg Tablet 400 mg PO Q6H PRN (Reason: Pain) Hold Instructions: Resume on 08/03/23. Discharge Orders: Discharge Order (Routine); Ordered 07/31/23 Ordered By: Shola Sommer Admission Data Admit Date/Time: 07/30/23 03:52 Attending Provider: Shola Sommer Admit Provider: Phil Sterling Primary Care Provider: Sara Reardon Other Providers: Phil Sterling; Zachary Trujillo; Keaton Grier Christopher T.; Carol Negron; Chris Lazaro; Dora Carvajal; Kami Domingo; Geovanny Geiger; Ivy Magana; Duy Whitley; Bryant Nguyen; Jerry Raymond
== END 2023-07-31 11:20 | disposition home or self-care (01) | DRG 694 ==
LOC: ED 23:18 → EDINP 07-30 03:52 → 3N 07-30 04:27